=== PATIENT | female | born 1940 ===

== ENCOUNTER 2018-08-18 11:28 | Emergency (ER) | payer OTHER ==
[~2018-08-18] VITALS: Ht 149.9 cm; Wt 55.3 kg
[2018-08-18] MEDS ORDERED: LIPITOR20 MG (16:47)
[2018-08-18] MEDS ORDERED: GLUMETZA500 MG (16:47)
== END 2018-08-18 19:32 | disposition home or self-care (01) ==
LOC: ER 11:28
DX: S00.83XA Contusion of other part of head, initial encounter (principal); S30.1XXA Contusion of abdominal wall, initial encounter; S30.0XXA Contusion of lower back and pelvis, initial encounter; V49.9XXA Car occupant (driver) (passenger) injured in unspecified traffic accident, initial encounter; Y93.89 Activity, other specified; Y92.488 Other paved roadways as the place of occurrence of the external cause; Y99.8 Other external cause status